=== PATIENT | male | born 1970 | race Caucasian/White ===

== ENCOUNTER 2019-11-13 07:21 | Observation (INO) | payer MEDICARE, OTHER ==
[2019-11-07 12:29] LABS: BASOPHILS # (AUTO) 0.1 (0.0-0.1); EOSINOPHILS # (AUTO) 0.1 (0.0-0.4); EOSINOPHILS % 2.4 % (0.0-6.0); HEMATOCRIT 43.4 % (38.2-49.6); HEMOGLOBIN 14.6 g/dL (14.0-18.0); LYMPHOCYTES # (AUTO) 0.7 (1.0-3.2); LYMPHOCYTES % 13.8 % (18.0-39.1); MEAN CORPUSCULAR HEMOGLOBIN 30.9 pg (28-32); MEAN CORPUSCULAR HGB CONC 33.6 g/dL (31-35); MEAN CORPUSCULAR VOLUME 91.8 fL (81-99); MONOCYTES # (AUTO) 0.4 (0.2-0.8); MONOCYTES % 7.5 % (4.4-11.3); NEUTROPHILS # (AUTO) 3.8 (2.1-6.9); NEUTROPHILS % 74.9 % (38.7-80.0); PLATELET COUNT 190 x10e3/uL (140-360); RED BLOOD COUNT 4.73 x10e6/uL (4.3-5.7)
[2019-11-07 12:45] LABS: INR 0.88; PROTHROMBIN TIME 12.4 seconds (11.9-14.5)
[2019-11-07 12:46] LABS: PARTIAL THROMBOPLASTIN TIME 39.3 seconds (23.8-35.5)
[2019-11-07 12:50] LABS: ANION GAP 15.8 mmol/L (8-16); BLOOD UREA NITROGEN 5 mg/dL (7-26); BUN/CREATININE RATIO 5 (6-25); CARBON DIOXIDE 27 mmol/L (22-29); CHLORIDE 94 mmol/L (98-107); CREATININE, SERUM 0.99 mg/dL (0.72-1.25); EST GLOMERULAR FILTRATION RATE > 60 ML/MIN (60-); GLUCOSE 99 mg/dL (74-118); POTASSIUM 3.8 mmol/L (3.5-5.1); SODIUM 133 mmol/L (136-145)
--- NOTE | 2019-11-07 13:34 | Diagnostic Imaging Report ---
Exam: CHEST 2 VIEWS Date: 11/07/2019 1:30 PM INDICATION: ^[id number] ^1250 ^PRE OP Comparison: None FINDINGS: Lines/Tubes:None Lungs:The lungs are well inflated. No focal consolidation or pulmonary edema. Pleura:No pleural effusion. No pneumothorax. Heart/Mediastinum:The cardiomediastinal silhouette is normal in size and contour. Bones/Soft Tissues: No acute osseous abnormality. Upper abdomen: Unremarkable. IMPRESSION: Negative for acute intrathoracic process. Signed by: Cullen Lopes MD on 11/07/2019 1:30 PM
[~2019-11-13] VITALS: Ht 185.4 cm; Wt 68.0 kg
[~2019-11-13 07:21] MED LIST: CYMBALTA30 MG PO; HYDROCHLOROTH12.5 MG PO; METOPROLOL SUCC50 MG PO; NORCO 10-325 T1 EACH PO; SOMA350 MG PO
[2019-11-13] MEDS ORDERED: LIDOCAINE HCL (LTA) 4 ML SOLN ONE (07:26)
[2019-11-13] MEDS ORDERED: IBUPROFEN 800MG/ 200ML 200 ML IV ONE (07:26)
[2019-11-13] MEDS ORDERED: THROMBIN FOR SOLN 5,000 UNIT VIAL ONE (08:14)
[2019-11-13] MEDS ORDERED: VANCOMYCIN HCL 1 GM VIAL ONE (08:14)
[2019-11-13] MEDS ORDERED: BUPIVACAINE 0.5%/EPI 30 ML SDV INJ ONE (08:14)
[2019-11-13] MEDS ORDERED: CEFAZOLIN SOD 1 GM/NS 50ML 100 ML IV ONE (09:06)
[2019-11-13] MEDS ORDERED: ONDANSETRON HCL INJ 2MG/ML 2ML 2 MG/ML VIAL IV PRN (10:45)
[2019-11-13] MEDS ORDERED: MAGNESIUM/ALUMINUM/SIMETHICONE 30 ML UDC PO PRN (10:45)
[2019-11-13] MEDS ORDERED: CEPACOL SORE THROAT LOZENGES PO PRN (10:45)
[2019-11-13] MEDS ORDERED: PROMETHAZINE HCL (IM) 25 MG/ML VIAL IM PRN (10:45)
[2019-11-13] MEDS ORDERED: MORPHINE SULFATE 5 MG/ML VIAL IM PRN (10:45)
[2019-11-13] MEDS ORDERED: ACETAMINOPHEN 325 MG TAB PO PRN (10:45)
[2019-11-13] MEDS ORDERED: FENTANYL CITRATE/PF 100MCG/2 ML INJ ONE ×2 (10:56→13:04)
[2019-11-13] MEDS ORDERED: HYDROMORPHONE 1MG/1ML INJ ONE ×2 (11:13→11:25)
[2019-11-13] MEDS ORDERED: MORPHINE SULFATE INJ 10 MG/ML ONE (11:33)
--- NOTE | 2019-11-13 11:35 | Operative Report ---
DATE OF PROCEDURE: 11/13/2019 SURGEON: Jaydon Greene MD PREOPERATIVE DIAGNOSIS: C5-C6 spondylosis and disk herniation with radiculopathy, M50.122. POSTOPERATIVE DIAGNOSIS: C5-C6 spondylosis and disk herniation with radiculopathy, M50.122. PROCEDURES: 1. C5-C6 anterior cervical diskectomy and microsurgical osteophyte resection and allograft fusion, 92738. 2. Preparation of MTF corticocancellous allograft, 24484. 3. C5-C6 anterior cervical plating with Synthes DPM plate, 14995. ANESTHESIA: General. INDICATIONS: The patient is a 49-year-old man, who presents with C5-C6 spondylosis and disk herniation with right-sided cervical radiculopathy and was taken to surgery for a C5-C6 ACDF. PROCEDURE IN DETAIL: After induction of general anesthesia, the patient was placed on the operative table in supine position. The right side of neck was prepped and draped in sterile fashion. The fluoroscopic C-arm was positioned in cross-table lateral orientation. A transverse incision was created right side of neck, superimposed in C5-C6 disk space as determined by fluoroscopy. The platysma was divided in line with the incision. A subplatysmal dissection was carried out and avascular plane of dissection was developed medially, sternocleidomastoid muscle was followed medial to the carotid sheath to the anterior border of the cervical spine. The deep cervical fascia was opened. The esophagus was retracted to the left. The attachments of longus colli muscles to the anterolateral aspects of vertebral bodies of C5 and C6 were divided. The anterior longitudinal ligament was resected. Norman posts were inserted in C5 and C6 and the Norman distractor was used to distract the disk space. The anterior annulus of this was incised with a #11 blade and the contents of the disk were thoroughly evacuated with curettes and pituitary instruments. The posterior osteophytes were meticulously drilled with a 2 mm cutting bur on a high-speed drill until they were completely removed. The posterior annulus of the disk, herniated disk material, and the posterior longitudinal ligament were resected layer by layer until the dura was fully exposed and decompressed. The medial aspects of the uncinate processes were resected bilaterally to further expose any compressed origins of the corresponding nerve roots. After satisfactory decompression had been achieved, the endplates were prepared for fusion, and the disk space was sized and found to be 8 mm in height. A piece of MTF corticocancellous allograft measuring 8 mm in thickness was selected and prepared in saline, and loaded onto a corresponding Synthes ZPN plate. The construct was inserted into the C5-C6 disk space under distraction and lateral fluoroscopic guidance and tamped in place until the anterior margin of the plate, it was flushed with anterior margin of the vertebral bodies. The plate was then screwed to the endplates of C5 and C6 with two pairs of 14 mm screws. All four screws were locked. An excellent construct was obtained. The wound was copiously irrigated with bacitracin solution. Meticulous hemostasis was secured. Retraction was removed. The platysma was closed with 3-0 Vicryl sutures. The skin was closed with 4-0 Vicryl sutures in subcuticular fashion. Steri-Strips and dressing were applied. The patient was awakened and extubated, and taken to Postanesthesia Care Unit in stable condition. No intraoperative complications were encountered. Estimated blood loss was 10 mL. Jaydon Greene MD PP/PEDRITO /[id number]
[2019-11-13] MEDS ORDERED: HYDRALAZINE HCL 20 MG/ML VIAL ONE (11:48)
[2019-11-13] MEDS ORDERED: HYDROCODONE/APAP 10MG-325MG TAB ONE (12:09)
--- OUTSIDE RECORDS SUMMARY | 2019-11-13 12:39 | XMS REPORT | Continuity of Care Document ---
Author Author [facility] Address Unknown Phone Unavailable Care Team Providers Care Digital Measurement Advisor Name Role Phone Outbox Information Exchange Unavailable Un available Problems Problem Status Onset Date Classification Date Reported Comments Source Secondary malignant neoplasm of other specified sites 05/31/2017 08/30/2017 [facility] R22.1/ NECK BX/ US CORE BX? Ac tive 05/15/2017 [facility] Benign neoplasm of major salivary gland, unspecified 04/03/2017 07/05/2017 [facility] Outpatient Imaging [facility] M25.511 - PAIN IN RIGHT SHOULDER Active 08/18/2015 [facility] Localized swelling, mass and lump, neck 07/05/2017 [facility] Outpatient Imaging [facility] Backache (finding) Active Problem 08/30/2017 mid to low back pain and nerve issues [facility] Outpatient Imaging [facility] Hypercholesterolemia (disorder) Active Problem [facility] Outpatient Imaging [facility] Hypertensive disorder, systemic arterial (disorder) Active Problem 08/30/2017 [facility] Outpatient Imaging [facility] Mass of skin (finding) Active Problem 08/30/2017 neck [facility] Outpati ent Imaging [facility] Neuropathy (disorder) Active Problem 08/30/2017 low back and legs [facility] Outpatient Imaging [facility] LOCALIZED SWELLING, MASS AND LUMP, NECK Active [facility] Medications Medication Details Route Status Patient Instructions Ordering Provider Order Date Source metoprolol tartrate 50 mg oral tablet 50 mg = 1 tab, PO, BID, # 180 tab, 0 Refill(s) Active 05/24/2017 [facility] Sodium Chloride 0.9% IV 500 mL 500 mL, Rate: 40 ml/hr, Infuse over: 12.5 hr, Route: IV, Dosing Weight 77.273 kg, Total Volume: 500, Start date: 05/24/17 6:59:00 CDT, Duration: 1 doses or times, Stop date: 05/24/17 19:28:00 CDT, 2, m2 Inactive 05/24/2017 [facility] Saline Flush 0.9% Notes: (Same as: BD Posiflush) Inactive 05/24/2017 [facility] Cymbalta 60 mg, PO, Daily, 0 R efill(s) Active 2017 [facility] Crestor PO, Bedtime, 0 Refill( s) Active 2017 [facility] Carisoprodol 350 MG Oral Tablet [Soma] 350 mg = 1 tab, PO, BID, 0 Refill(s) Active 2017 [facility] Acetaminophen 325 MG / Hydrocodone Luis trate 10 MG Oral Tablet [Norris 10/325] 1 tab, PO, Q4H, PRN for pain, prn, # 24 tab, 0 Refill(s) Active 2017 [facility] Lisinopril 20 mg, PO, Daily, h ctz, 0 Refill(s) Active 2017 [facility] Unknown Home Medication 50 mg =, BID, metoprolol, Refill(s) 0 No Longer Active 2017 [facility] Clonidine 0.3 mg, PO, BID, 0 R efill(s) Active 2017 [facility] Allergies, Adverse Reactions, Alerts No Known Medication Allergies Immunizations No Data Provided for This Section Results Order Name Results Value Reference Range Date Interpretation Comments Source Culture: Anaerobic No Anaerobes Is olated 05/24/2017 [facility] Gram Stain Report Rare WBC's No Organisms Seen 05/24/2017 [facility] Culture: Aspirate/Body Fluid/Tissue No Growth 05/24/2017 [facility] INR 1.05 0.85 - 1.17 05/24/2017 [facility] PTT 36.0 22.9 - 35.8 05/24/2017 [facility] HEMATOLOGY PT 13.7 12.0 - 14.7 05/24/2017 [facility] HEMATOLOGY Platelet 253 133 - 450 05/24/2017 [facility] HEMATOLOGY RDW 12.4 11.5 - 14.5 05/24/2017 [facility] MCHC 35.1 32.0 - 36.0 05/24/2017 [facility] MPV 9.3 7.4 - 10.4 05/24/2017 [facility] MCV 96.5 80.0 - 94.0 05/24/2017 [facility] MCH 33.9 27.0 - 31.0 05/24/2017 [facility] RBC 4.84 4.70 - 6.10 05/24/2017 [facility] Hgb 16.4 14.0 - 18.0 05/24/2017 [facility] Hct 46.7 42.0 - 54.0 05/24/2017 [facility] WBC 9.7 3.7 - 10.4 05/24/2017 [facility] Monocytes # 0.7 0.0 - 0.8 05/24/2017 [facility] Eosinophils # 0.2 0.0 - 0.5 05/24/2017 [facility] Lymphocytes # 1.5 1.0 - 5.5 05/24/2017 [facility] Segs 74.6 45.0 - 75.0 05/24/2017 [facility] Basophils 0.3 0.0 - 1.0 05/24/2017 [facility] Segs-Bands # 7.2 1.5 - 8.1 05/24/2017 [facility] Monocytes 7.0 2.0 - 12.0 05/24/2017 [facility] Lymphocytes 15.9 20.0 - 40.0 05/24/2017 [facility] Eosinophils 2.2 0.0 - 4.0 05/24/2017 [facility] Pathology Reports No Data Provided for This Section Diagnostic Reports Report Value Date Source Guided Needle BX/Asp/Inj/NeedLoc US Clinical Indication: - neck lymph node; Comparison: CT from 03/29/2017 PROCEDURE: Informed written consent was obtained. Risks include pain bleeding infection and need for surgical biopsy Patient brought to procedure suite placed in supine position and prepped and draped in sterile manner. Following subcutaneous lidocaine administration utilizing ultrasound for needle guidance 19-gauge guiding needle was precariously introduced into the right neck mass measuring 3.8 x 2 cm. Utilizing coaxial technique 5 x 20G cores were obtained. Submitted in formalin as well as RPMI flow cytometry solution and specimen container for microbiology analysis. [place] removed. Bandage applied. 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 Coronal and sagittal reconstructions were obtained. CONTRAST: 100 cc of IV Omnipaque contrast material was used for the exam. CT Radiation Dose DLP 500 mGy-cm FINDINGS: There is asymmetric soft tissue in the right vallecula seen on image 42 of series 4 measuring up to 2 cm in transverse and 0.6 cm in thickness. This involves the base of the tongue, the glossoepiglottic fold and partly extends into the anterior surface of the epiglottis. There is asymmetry of the preepiglottic fat suggestive of involvement of the preepiglottic fat. The hyoid bone is unremarkable. No extra laryngeal soft tissue. No involvement of the piriform sinuses of the aryepiglottic fold. 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 The rest of the larynx and pharynx are unremarkable. There is a 4 x 2.8 x 2.1 cm heterogeneous lymph node in the right level 2A station with internal necrosis and ill-defined margins suspicious for extranodal tumor spread. There is a 4.2 x 2.8 x 2.2 cm level 2 lymph node on the left side with similar heterogeneity and tiny hypodense areas and some indistinct margins concerning for extranodal tumor spread. A few other borderline lymph nodes are seen along the jugular chains, level IIb and 3 stations these are indeterminate. The thyroid gland and parotid glands are unremarkable. Significant clip is seen in the right the carotid vessels are without flow-limiting stenosis. No adenopathy in the central compartment. The lung apices are clear. There is a mucous retention cyst in the right maxillary sinus. The patient is edentulous. Mild degenerative changes are seen in the cervical spine. . If there is further concern for neck m asses or malignancy, PET/CT imaging or MRI of the neck should be performed for complete assessment. 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 Correlation with direct inspection recommended. Enlarged bilateral level 2A lymph nodes with internal necrosis and findings suspicious for extranodal tumor spread. These lymph nodes measure 4.2 cm in maximum dimension. The report will be faxed to Dr. Tobias's office. SL: [id number] 03/29/2017 [facility] Outpatient Imaging [facility] Shoulder w contrast MRI INDICA TION: M25.511 Pain in right shoulder COMPARISON: Right shoulder radiographs 08/18/2015. TECHNIQUE: Fluoroscopy-guided arthrogram was performed prior to MRI. Please see the corresponding report for further details. Axial, oblique coronal, and oblique sagittal MR images of the right shoulder. IV contrast: None. FINDINGS: ROTATOR CUFF AND ASSOCIATED STRUCTURES Rotator cuff: There is no complete or bursal/articular sided partial rotator cuff tear. The subscapularis constituent of the rotator cuff is intact. Bursa: No bursal effusion or thickening is seen. Musculature: There is no muscular tear, contusion, or atrophy. Acromioclavicular joint: There are moderate degenerative changes of the acromioclavicular joint. A type 2 acromion configuration is noted. There is no anterior or lateral acromial downsloping. OSSEOUS STRUCTURES There are no fractures or regions of abnormal bone marrow signal intensity. LONG BICIPITAL TENDON The biceps tendon is normally situated within the bicipital groove. No complete or partial biceps tendon tear is present. GLENOHUMERAL JOINT Joint fluid: There is adequate distention of the glenohumeral joint with contrast. Cartilage: No focal hyaline cartilage defects are noted. Labrum: Tear of the posterosuperior labrum with paralabral cyst measuring 0.9 x 1.0 cm (series 401 image 20). Tear extends along the posterior labrum with several additional 3-4 mm paralabral cysts. Degeneration and tearing of the anteroinferior labrum. Degeneration of the superior labrum. Other support structures: No capsular or ligamentous abnormality is seen. OTHER FINDINGS: None. IMPRESSION: 1. Tear of the posterosuperior and post erior labrum with several paralabral cysts. 2. Degeneration and tearing of the ante roinferior labrum. 3. Intact rotator cuff. 4. Moderate acromioclavicular joint ost eoarthropathy. SL: [id number] 09/09/2015 [facility] Outpatient Imaging [facility] Fluoro guidance needle placement DX Clinical Indication: M25.511 Pain in right shoulder 45-year-old with right shoulder pain Comparison: None EXAM: FLUOROSCOPY-GUIDED RIGHT SHOULDER INJECTION FOR MR ARTHROGRAM TECHNIQUE: Consent: An informed consent was obtained from the patient prior to the procedure. Appropriate time out procedures were performed. The skin was prepped and draped in the usual fashion under aseptic precautions. 1% lidocaine was utilized for local anesthesia. Under fluoroscopic guidance a 22 gauge long spinal needle was used to access the shoulder joint. 1 mL of Omnipaque 240 was injected under fluoroscopic guidance to confirm intra- articular needle placement. 6 mL of a mixture of 0.1 mL Omniscan wit h 10 mL of saline, and 4 mL of 0.2% ropivacaine were drawn into a 10 mL syringe. 8 mL of this mixture was injected into the shoulder joint. No immediate complications. FLUORO TIME: 0 :31 minutes DAP: 121.7 mGy-cm2 FINDINGS: A normal shoulder joint was outlined. IMPRESSION: Technically successful fluoroscopy-guided right shoulder injection for MR arthrogram. SL: [id number] 09/09/2015 [facility] Outpatient Imaging [facility] Shoulder series DX Clinical In dication: Right shoulder pain for one year which radiates down the arm Comparison: None FINDINGS: The 3 views of the right shoulder show normal alignment at the glenohumeral joint. There are no fractures or dislocations. The acromioclavicular joint and coracoclavicular spaces are intact. The acromion and coracoid processes appear unremarkable. The subacromial space is unremarkable. The visualized scapula and clavicle are unremarkable. There are no radiopaque foreign bodies or soft tissue swelling. If there is further concern, followup radiographs or MRI of the shoulder may be performed for complete assessment. IMPRESSION: No fractures or dislocations of shoulder. SL: [id number] 08/18/2015 [facility] Outpatient Imaging [facility] Consultation Notes No Data Provided for This Section Discharge Summaries No Data Provided for This Section History and Physicals No Data Provided for This Section Vital Signs Vital Sign Value Date Comments Source Systolic (mm Hg) 106 05/24/2017 [facility] Diastolic (mm Hg) 73 05/24/2017 [facility] Respitory Rate 17 05/24/2017 [facility] Heart Rate 65 05/24/2017 [facility] Respitory Rate 18 05/24/2017 [facility] Systolic (mm Hg) 116 05/24/2017 [facility] Diastolic (mm Hg) 73 05/24/2017 [facility] Heart Rate 63 05/24/2017 [facility] Systolic (mm Hg) 112 05/24/2017 [facility] Diastolic (mm Hg) 65 05/24/2017 [facility] Respitory Rate 17 05/24/2017 [facility] Heart Rate 65 05/24/2017 [facility] BMI Calculated 22.48 2017 [facility] Height 185.42 cm 2017 [facility] Weight 77.273 2017 [facility] Encounters Location Location Details Encounter Type Encounter Number Reason For Visit Attending Provider ADM Date DC Date Status Source [facility] Outpatient Imaging [facility] Outpt Diag Services [id number] Mauricio Tobias 08/18/2015 08/19/2015 [facility] Outpatient Imaging [facility] Outpatient Imaging [facility] Outpt Diag Services [id number] 01 Jonatan Ibanez 09/09/2015 09/10/2015 [facility] Outpatient Imaging [facility] Outpatient Imaging [facility] Outpt Diag Services [id number] Mauricio Tobias 03/29/2017 03/30/2017 [facility] Outpatient Imaging [facility] Day Surgery [id number] Eyad Dao 05/24/2017 05/24/2017 [facility] Procedures Procedure Code Date Perfomer Comments Source Appendectomy [id number] [facility] Outpatient Imaging [facility] Back fusion<sup>1</sup> [id number] x2 with rodas rdware [facility] [place] [facility] Shoulder joint operations<sup>2</sup> [id number] x2 [facility] Assessment and Plan No Data Provided for This Section Plan of Care No Data Provided for This Section Social History Social History Date Source Social History TypeResponse Substance Abuse Use: None. Alcohol Current, Frequency: 1-2 times per month. Smoking Status Current every day smoker; Lives with someone who smokes; Cigarette Smoking Last 365 Days Yes; Reg Smoking Cessation Counseling Yes entered on: 05/24/17 05/24/2017 [facility] Outpatient Imaging [facility] Social History TypeResponse Substance Abuse Use: None. Alcohol Current, Frequency: 1-2 times per month. Smoking Status Current every day smoker; Lives with someone who smokes; Cigarette Smoking Last 365 Days Yes; Reg Smoking Cessation Counseling Yes entered on: 05/24/17 05/24/2017 [facility] Family History No Data Provided for This Section Advance Directives No Data Provided for This Section Functional Status No Data Provided for This Section
[2019-11-13 12:56] VITALS: BP 148/96
[2019-11-13 13:04] VITALS: BP 148/96
[2019-11-13] MEDS ORDERED: MIDAZOLAM HCL 2 MG/2 ML VIAL ONE (13:04)
[2019-11-13 13:08] VITALS: BP 148/96
[2019-11-13] MEDS ORDERED: LACTATED RINGER'S 1,000 ML ONE (13:22)
--- NOTE | 2019-11-13 13:36 | NUR ---
RECEIVED REPORT FROM [facility] -PAC[facility]. PATIENT ARRIVED TO THE UNIT @ 1250. PATIENT IN STABLE CONDITION, NO S/S OF DISTRESS NOTED. KATE HOSE ALONG WITH SCDs APPLIED. SKIN INTACT DRESSING NOTED TO THE NECK C/D/I WITH A SOFT C-COLLAR APPLIED. RESPIRATION EVEN AND NON LABORED. IV FLUIDS INFUSING, SITE ASYMPTOMATIC AND PATENT, TRANSPARENT DRESSING C/D/I. BED IN LOWEST POSITION AND LOCKED, SIDE RAILS X 2 , NONSKID SOCKS APPLIED. CALL LIGHT WITHIN REACH.
[2019-11-13] MEDS ORDERED: ROCURONIUM BROMIDE 10 MG/ML 5ML VIAL IV ONE (13:53)
[2019-11-13] MEDS ORDERED: ONDANSETRON HCL INJ 2MG/ML 2ML 2 MG/ML VIAL ONE (13:53)
[2019-11-13] MEDS ORDERED: PROPOFOL IV EMULSION 10 MG/ML 20 ML VIAL ONE (13:53)
[2019-11-13] MEDS ORDERED: LIDOCAINE HCL 2% JELLY 5 ML TUBE ONE (13:53)
[2019-11-13] MEDS ORDERED: DEXAMETHASONE SOD PHOS INJ 4 MG/ML VIAL ONE (13:53)
[2019-11-13] MEDS ORDERED: NEOSTIGMINE 1 MG/ML 10ML VIAL ONE (13:53)
[2019-11-13] MEDS ORDERED: GLYCOPYRROLATE INJ 0.2 MG/ML VIAL ONE (13:53)
[2019-11-13] MEDS ORDERED: LIDOCAINE HCL 2% LOCAL INJ 5 ML SDV VIAL INJ ONE (13:53)
[2019-11-13] MEDS ORDERED: SEVOFLURANE INHAL SOLN 250 ML PEN BTL ONE (13:53)
[2019-11-13] MEDS: LACTATED RINGER'S 1,000 ML IV SCH ×2 (14:03→23:43)
[2019-11-13] MEDS: HYDROCODONE/APAP 10MG-325MG TAB PO SCH ×2 (15:06→20:17)
--- NOTE | 2019-11-13 15:20 | NUR ---
PATIENT UP AMBULATING IN THE [facility].
[2019-11-13 15:34] VITALS: BP 118/76
[2019-11-13] MEDS: METOPROLOL SUCCINATE 50 MG TAB XL PO SCH (17:11)
[2019-11-13] MEDS: CARISOPRODOL 350 MG TAB PO SCH (17:11)
[2019-11-13] MEDS: CEFAZOLIN SOD 1 GM/NS 50ML 50 ML IV SCH (18:16)
[2019-11-13] MEDS: HYDROMORPHONE 2MG/ML 2 MG/ML ML IV PRN ×2 (18:47→23:55)
--- NOTE | 2019-11-13 19:00 | NUR ---
COMPLETED BEDSIDE AND ROUNDING WITH ONCOMING NIGHT NURSE. PATIENT IN STABLE CONDITION, NO S/S OF DISTRESS NOTED. KATE HOSE ALONG WITH SCDs APPLIED. SKIN INTACT DRESSING NOTED TO THE NECK C/D/I WITH A SOFT C-COLLAR APPLIED. RESPIRATION EVEN AND NON LABORED. IV FLUIDS INFUSING, SITE ASYMPTOMATIC AND PATENT, TRANSPARENT DRESSING C/D/I. BED IN LOWEST POSITION AND LOCKED, SIDE RAILS X 2 , NONSKID SOCKS APPLIED. CALL LIGHT WITHIN REACH.
--- NOTE | 2019-11-13 19:05 | NUR ---
RECEIVED REPORT FROM PREVIOUS NURSE. CALL LIGHT WITHIN REACH. PATIENT IN BED. PATIENT IN NO PAIN OR DISTRESS.
[2019-11-13 19:35] VITALS: BP 135/99
[2019-11-13 19:55] VITALS: BP 135/99
[2019-11-13] MEDS ORDERED: ZOLPIDEM TARTRATE 5 MG TAB PO PRN (21:00)
[2019-11-13] MEDS: CARISOPRODOL 350 MG TAB PO PRN (22:24)
[2019-11-13] MEDS: OXYCODONE/ACETAMINOPHEN 5-325 1 EACH TABLET PO PRN (22:24)
[2019-11-14] VITALS: BP 147/98
[2019-11-14] MEDS: CEFAZOLIN SOD 1 GM/NS 50ML 50 ML IV SCH ×2 (01:17→09:02)
[2019-11-14] MEDS: CARISOPRODOL 350 MG TAB PO PRN (03:08)
[2019-11-14] MEDS: OXYCODONE/ACETAMINOPHEN 5-325 1 EACH TABLET PO PRN (03:08)
[2019-11-14 04:56] VITALS: BP 156/98
[2019-11-14] MEDS: HYDROMORPHONE 2MG/ML 2 MG/ML ML IV PRN (04:57)
--- NOTE | 2019-11-14 06:59 | NUR ---
GAVE BEDSIDE SHIFT REPORT TO ONCOMING NURSE. CALL LIGHT WITHIN REACH. PATIENT IN BED. HOURLY ROUNDING PERFORMED.
--- NOTE | 2019-11-14 07:00 | NUR ---
RECEIVED BEDSIDE SHIFT REPORT FROM OFF GOING NIGHT NURSE. PATIENT IN STABLE CONDITION, NO S/S OF DISTRESS NOTED. KATE HOSE ALONG WITH SCDs APPLIED. SKIN INTACT DRESSING NOTED TO THE NECK C/D/I WITH A SOFT C-COLLAR APPLIED. RESPIRATION EVEN AND NON LABORED. IV FLUIDS INFUSING, SITE ASYMPTOMATIC AND PATENT, TRANSPARENT DRESSING C/D/I. BED IN LOWEST POSITION AND LOCKED, SIDE RAILS X 2 , NONSKID SOCKS APPLIED. CALL LIGHT WITHIN REACH.
[2019-11-14 07:41] VITALS: BP 152/97
[2019-11-14 07:54] VITALS: BP 152/97
--- NOTE | 2019-11-14 07:56 | Diagnostic Imaging Report ---
Radiographs of the cervical spine - 2 views HISTORY: Pain COMPARISON: None available. FINDINGS: Bones: No acute displaced fracture. Osseous alignment is within normal limits. Joints: Patient is status post anterior fusion at C5/6 with intervertebral body spacer material. The surgical hardware is intact without evidence of failure or loosening. Soft tissues: The soft tissues appear unremarkable. IMPRESSION: Patient is status post anterior fusion at C5/6 with intervertebral body spacer material. The surgical hardware is intact without evidence of failure or loosening. Signed by: Dr. Byron Qureshi M.D. on 11/14/2019 7:53 AM
[2019-11-14] MEDS: HYDROCODONE/APAP 10MG-325MG TAB PO SCH (08:09)
[2019-11-14] MEDS: CARISOPRODOL 350 MG TAB PO SCH (08:09)
[2019-11-14] MEDS: METOPROLOL SUCCINATE 50 MG TAB XL PO SCH (08:10)
[2019-11-14] MEDS ORDERED: NORCO 7.5-3251 EACH PO (08:32)
[2019-11-14] MEDS ORDERED: DULOXETINE HCL 30 MG DELAYED RELEASE PO SCH (09:00)
[2019-11-14] MEDS ORDERED: HYDROCHLOROTHIAZIDE 25 MG TAB PO SCH (09:00)
[2019-11-14] MEDS ORDERED: NON-FORMULARY MEDICATION (Hydrochlorothiazide 12.5 MG) PO SCH (09:00)
--- NOTE | 2019-11-14 09:39 | NUR ---
PATIENT DISCHARGED HOME. PATIENT OFF THE UNIT @ 0930 VIA WHEELCHAIR ACCOMPANIED BY PCT TO THE LOBBY. PATIENT IN STABLE CONDITION, NO S/S OF DISTRESS NOTED. NO PAIN VOICED. SOFT C-COLLAR IN PLACE NO BLEEDING, REDNESS OR S/S OF INFECTION TO THE INCISION SITE. IV ACCESS REMOVED WITH TIP INTACT. ALL PERSONAL ITEMS TAKEN WITH THE PATIENT. DISCHARGE TEACHING AND INSTRUCTIONS GIVEN TO THE PATIENT ALONG WITH PRESCRIPTIONS AND DISCHARGE PAPER WORK. PATIENT VERBALIZED UNDERSTANDING.
== END 2019-11-14 09:30 | disposition home or self-care (01) ==
LOC: OR 07:21 → PACU V 10:40 → IMCU 12:51
PROVIDERS: ADMIT Neurological Surgery; ATTEND Neurological Surgery
DX: M50.122 Cervical disc disorder at C5-C6 level with radiculopathy (principal); Z11.59 Encounter for screening for other viral diseases; I10 Essential (primary) hypertension; M19.90 Unspecified osteoarthritis, unspecified site; G89.29 Other chronic pain
CPT/HCPCS: 20931; 22551; 22845; 36415; 71046; 72040; 77003; 80048; 85025; 85610; 85730; 86850; 86900; 88304; 88311; 93005; C1713 ×2; C9359; G0378 ×2; J0360; J0690 ×2; J1100; J1170 ×3; J2001 ×2; J2250; J2270; J2405; J2704; J2710; J3010; J3370; J7121; U0002